=== PATIENT | female | born 2000 | race African-American/Black ===

== ENCOUNTER 2018-08-30 11:36 | Emergency (ER) | payer MEDICAID ==
[~2018-08-30] VITALS: Ht 157.5 cm; Wt 64.0 kg
[2018-08-30] MEDS: ACETAMINOPHEN 325MG TABLET PO ONE (15:30)
[2018-08-30 15:39] LABS: BASOPHILS % 0.9 % (0.0-2.0); EOSINOPHILS % 1.2 % (0.0-5.0); HEMATOCRIT. 37.2 % (36.0-48.0); HEMOGLOBIN. 11.9 g/dL (12.0-16.0); MEAN CORPUSCULAR HEMOGLOBIN 24.9 pg (28.0-32.0); MEAN CORPUSCULAR VOLUME 77.5 fL (81.0-99.0); MONOCYTES % 5.3 % (2.0-8.0); NEUTROPHILS % 62.6 % (40.0-76.0); PLATELET 257 x1000/uL (130-400)
[2018-08-30 15:43] LABS: CHLORIDE 108 mEq/L (98-107)
[2018-08-30 16:04] LABS: COLOR URINE YELLOW (YELLOW); KETONES URINE NEGATIVE (NEGATIVE); LEUKOCYTE ESTERASE URINE TRACE (NEGATIVE); NITRITE URINE NEGATIVE (NEGATIVE); OCCULT BLOOD URINE NEGATIVE (NEGATIVE); PH URINE 7.5 (4.5-8.0); PROTEIN URINE NEGATIVE (NEGATIVE); UROBILINOGEN URINE 0.2 E.U./dL (0.2-1.0)
[2018-08-30 16:05] LABS: CLARITY URINE CLEAR (CLEAR)
[2018-08-30] MEDS: IBUPROFEN 600MG TABLET PO ONE (16:26)
[2018-08-30 17:20] VITALS: BP 103/53
== END 2018-08-30 17:20 | disposition home or self-care (01) ==
LOC: ER 11:36
DX: R10.30 Lower abdominal pain, unspecified (principal)
CPT/HCPCS: 36415; 80053; 81003; 81025; 83690; 85025; 99283; Z7610

== ENCOUNTER 2018-11-05 00:01 | Emergency (ER) | payer SELFPAY ==
[~2018-11-05] VITALS: Ht 152.4 cm; Wt 50.0 kg
[2018-11-05] MEDS ORDERED: IBUPROFEN 800MG TABLET PO ONE (03:00)
[2018-11-05 06:54] VITALS: BP 125/72
== END 2018-11-05 06:55 | disposition home or self-care (01) ==
LOC: ER 00:01
DX: M25.551 Pain in right hip (principal); V49.09XA Driver injured in collision with other motor vehicles in nontraffic accident, initial encounter; Y93.89 Activity, other specified; Y92.89 Other specified places as the place of occurrence of the external cause; Y99.8 Other external cause status
CPT/HCPCS: 72192; 73502; 81025; 99284